=== PATIENT | female | born 1955 | race Caucasian/White ===

== ENCOUNTER → 2016-09-08 | Outpatient (CLI) | payer BC ==
[~2016-09-08] MED LIST: ASPI81TA28 PO; BUSP5TAB59 PO; CETI10TA84 PO; FAMO20TA11 PO; MULT-506 PO
== END | disposition home or self-care (01) ==
LOC: C.LABBC 14:45
PROVIDERS: ATTEND Internal Medicine
DX: Z00.00 Encounter for general adult medical examination without abnormal findings (principal)

== ENCOUNTER → 2016-12-24 | Outpatient (CLI) | payer BC ==
--- NOTE | 2016-12-24 12:55 | MAMMOGRAPHY REPORT ---
BILATERAL DIGITAL SCREENING MAMMOGRAM WITH CAD: 12/24/2016 CLINICAL HISTORY: Routine screening. Patient has no complaints. TECHNIQUE: Current study was also evaluated with a Computer Aided Detection (CAD) system. Bilateral CC and MLO views were obtained. COMPARISON: Comparison is made to exams dated: 12/24/2015 mammogram, 12/19/2014 mammogram, 11/08/2013 m ammogram, 11/20/2013 stereotactic biopsy, and 11/10/2013 mammogram - [facility]. BREAST COMPOSITION: The tissue of both breasts is heterogeneously dense, which may obscure small mas ses. FINDINGS: No suspicious masses, calcifications, or areas of architectural distortion are noted in ei ther breast. There has been no significant interval change compared to prior exams. A biopsy marker clip is again noted in the left upper outer quadrant. There are stable postsurgical changes in the r ight posterior breast from prior excisional biopsy. Benign-appearing mass in the left anterior breas t is stable. Scattered bilateral benign-appearing calcifications are stable. IMPRESSION: ACR BI-RADS CATEGORY 2: BENIGN There is no mammographic evidence of malignancy. A 1 year screening mammogram is recommended. The pa tient will receive written notification of the results. Approximately 10% of breast cancers are not detected with mammography. A negative mammographic report should not delay biopsy if a clinically suggestive mass is present. Mirian Veliz M.D. ah/:12/24/2016 11:02:01 Rn Quality: Ivy CALLE(Miranda)(M), [facility] letter sent: Normal 1/2 BI-RADS Code: ACR BI-RADS Category 2: Benign
== END | disposition home or self-care (01) ==
LOC: C.MAMM 10:34
PROVIDERS: ATTEND Internal Medicine
DX: Z12.31 Encounter for screening mammogram for malignant neoplasm of breast (principal)

== ENCOUNTER → 2017-04-28 | Day surgery (SDC) | payer BC ==
[2017-04-12 08:15] VITALS: BMI 21.0
[~2017-04-28] VITALS: Ht 177.8 cm; Wt 65.9 kg
[~2017-04-28] MED LIST changes: +LIDOCAINE HCL 2% 2 ML VIAL (20MG/ML) ONE; +PROPOFOL IV EMULSION 10 MG/ML 20 ML VIAL IV ONE; +SODIUM CHLORIDE 0.9% 500ML 500 ML IV ONE
[2017-04-28 08:07] VITALS: Ht 177.8 cm; Wt 65.9 kg
--- NOTE | 2017-04-28 08:14 | Endo History and Physical ---
History & Physical Date of Service: Apr 28, 2017. Chief Complaint: Family history of colon cancer Referring Physician: Kip Saucedo History of Present Illness 61 yo CF who presents for colonoscopy secondary to family history of colon cancer. Past Surgical History Hx Cardiac Surgery: No Hx Internal Defibrillator: No Hx Pacemaker: No Hx Abdominal Surgery: Yes (PARTIAL HYSTER, X2) Hx of Implantable Prosthesis: No Hx Post-Op Nausea and Vomiting: No Hx Cancer Surgery: No Hx Thoracic Surgery: No Hx Orthopedic: Yes (RT GREAT TOE JOINT REPLACEMENT) Hx Urinary Tract Surgery: No Family History Colon CA, Esophogeal CA Social History Smoking Status: Never Smoker Hx Substance Use: No Hx Alcohol Use: Yes (OCCASIONAL) Allergies Coded Allergies: Amoxicillin (Verified Adverse Reaction, Unknown, "VERY SEVERE HEADACHES", 04/28/17) Current Medications Reported Home Medications Medications Dose Route/Sig Max Daily Dose Days Date Category Buspirone Hcl 5 Mg Tab 0.5 Tab PO DAILY PRN 04/12/17 Reported Aspirin Ec (Aspirin) 81 Mg Tab 81 Mg PO 3XWK 04/12/17 Reported Pepcid (Famotidine) 20 Mg Tab 20 Mg PO DAILY PRN 04/12/17 Reported Zyrtec (Cetirizine HCl) 10 Mg Tab 10 Mg PO QAM 04/12/17 Reported Multivitamin (Multivitamins) Tab 1 Tab PO DAILY 04/12/17 Reported Vital Signs Weight (Kilograms): 65.91 Height (Feet): 5 Height (Inches): 10 Physical Exam General Appearance: WD/WN, no apparent distress Respiratory/Chest: Auscultation: breath sounds normal Cardiovascular: Heart Auscultation: RRR Abdomen: Bowel Sounds: normal Inspection & Palpation: soft, non-distended, no tenderness, guarding & rebound Assessment and Plan Assessment: 61 yo CF who presents for colonoscopy secondary to family history of colon cancer. Plan: Proceed with colonoscopy.
--- NOTE | 2017-04-28 08:59 | GI REPORT ---
Procedure Date: 04/28/2017 8:14 AM Procedure: Colonoscopy Indications: Family history of colon cancer in a first-degree relative Medicines: Monitored Anesthesia Care Complications: No immediate complications. Estimated Blood Loss: Estimated blood loss: none. Procedure: Pre-Anesthesia Assessment: - Prior to the procedure, a History and Physical was performed, and patient medications and allergies were reviewed. The patient's tolerance of previous anesthesia was also reviewed. The risks and benefits of the procedure and the sedation options and risks were discussed with the patient. All questions were answered, and informed consent was obtained. Prior Anticoagulants: The patient has taken aspirin, last dose was 7 days prior to procedure. ASA Grade Assessment: I - A normal, healthy patient. After reviewing the risks and benefits, the patient was deemed in satisfactory condition to undergo the procedure. After I obtained informed consent, the scope was passed under direct vision. Throughout the procedure, the patient's blood pressure, pulse, and oxygen saturations were monitored continuously. The scope was introduced through the anus and advanced to the terminal ileum. The colonoscopy was performed without difficulty. The patient tolerated the procedure well. The quality of the bowel preparation was good. The terminal ileum, ileocecal valve, appendiceal orifice, and rectum were photographed. Findings: External and internal hemorrhoids were found during retroflexion and during perianal exam. The hemorrhoids were medium-sized. The exam was otherwise without abnormality. Impression: - External and internal hemorrhoids. - The examination was otherwise normal. - No specimens collected. Recommendation: - Resume previous diet. - Continue present medications. - Repeat colonoscopy in 5 years for surveillance. - Return to primary care physician as previously scheduled. Reilly Almaguer DO 04/28/2017 8:59:01 AM This report has been signed electronically. Note Initiated On: 04/28/2017 8:14 AM I attest to the content of the Intraoperative Record and orders documented therein, exceptions below
--- NOTE | 2017-04-28 09:01 | Discharge Instructions ---
Endoscopy Patient Instructions Date / Procedure(s) Performed Apr 28, 2017. Colonoscopy Allergy Information Coded Allergies: Amoxicillin (Verified Adverse Reaction, Unknown, "VERY SEVERE HEADACHES", 04/28/17) Discharge Date / Findings Apr 28, 2017. Internal and external hemorrhoids Medication Instructions OK to resume all medications today as prescribed Reported Home Medications Medications Dose Route/Sig Max Daily Dose Days Date Category Buspirone Hcl 5 Mg Tab 0.5 Tab PO DAILY PRN 04/12/17 Reported Aspirin Ec (Aspirin) 81 Mg Tab 81 Mg PO 3XWK 04/12/17 Reported Pepcid (Famotidine) 20 Mg Tab 20 Mg PO DAILY PRN 04/12/17 Reported Zyrtec (Cetirizine HCl) 10 Mg Tab 10 Mg PO QAM 04/12/17 Reported Multivitamin (Multivitamins) Tab 1 Tab PO DAILY 04/12/17 Reported Provider Instructions Activity Restrictions - No exercising or heavy lifting for 24 hours. - Do not drink alcohol the day of the procedure. - Do not drive a car or operate machinery until the day after the procedure. - Do not make any important decisions or sign important papers in 24 hours after the procedure. Following Day: - Return to full activity which may include returning to work/school. Diet Start your diet with liquids and light foods (jello, soup, juice, toast). Then eat your usual diet if not nauseated. Treatment For Common After Affects For mild abdominal pain, bloating, or excessive gas: - Rest - Eat lightly - Lie on right side Follow-Up Information Follow-up with Dr. Kip Saucedo as scheduled Anesthesia Information What You Should Know You have had a procedure that required some medicine to reduce anxiety and discomfort. This treatment is called moderate sedation. After receiving the treatment, you may be sleepy, but you will be able to breathe on your own. The effects of the treatment may last for several hours. Follow these instructions along with Activity/Diet recommendations noted above: * Do NOT do anything where dizziness or clumsiness would be dangerous. * Rest quietly at home today, then you can be up and about tomorrow. * Have a responsible person stay with you the rest of today. * You may have had an I.V. today. If so, you may take the dressing off later today. Recommendations Call your doctor if: * Trouble breathing * Continuous vomiting for more than 24 hours * Temperature above 101 degrees * Severe abdominal pain or bloating * Pain not relieved by pain medicine ordered * There is increased drainage or redness from any incision * A large amount of rectal bleeding greater than 2-3 tablespoons. (If you had a polyp/s removed or have hemorrhoids, a small amount of blood - from the rectum is to be expected.) * You have any unanswered questions or concerns. IN THE EVENT OF A SERIOUS EMERGENCY, GO TO THE NEAREST EMERGENCY ROOM Your discharge instructions were prepared by provider Reilly Almaguer. Patient Instructions Signature Page Malena Morales Patient (or Guardian) Signature/Date: I have read and understand the instructions given to me by my caregivers. Caregiver/RN/Doctor Signature/Date: The above-named patient and/or guardian has received patient instructions on this date. + Original Patient Signature Page (only) stays with chart. Please make copy for patient.
[2017-04-28 09:27] VITALS: BP 135/74; PULSE 54; O2SAT 98
--- NOTE | 2017-04-28 09:31 | Anesthesiology Progress Note ---
Anesthesia Post Op Note Date & Time Apr 28, 2017 at 09:31 Vital Signs Pain Intensity: 0 Vital Signs Past 12 Hours Date Time Temp Pulse Resp B/P (MAP) Pulse Ox O2 Delivery O2 Flow Rate FiO2 04/28/17 09:27 54 18 135/74 (94) 98 Room Air 04/28/17 09:12 57 18 128/70 (89) 98 Room Air 04/28/17 08:57 60 18 117/65 (82) 97 Room Air 04/28/17 08:15 36.7 72 72 116/76 (89) 98 Room Air Notes Mental Status: alert / awake / arousable, participated in evaluation Pt Amnestic to Procedure: Yes Nausea / Vomiting: adequately controlled Pain: adequately controlled Airway Patency, RR, SpO2: stable & adequate BP & HR: stable & adequate Hydration State: stable & adequate Anesthetic Complications: no major complications apparent
== END | disposition home or self-care (01) ==
LOC: C.GI 07:41
PROVIDERS: ATTEND Internal Medicine
DX: Z12.11 Encounter for screening for malignant neoplasm of colon (principal); K64.8 Other hemorrhoids; K64.4 Residual hemorrhoidal skin tags; Z80.0 Family history of malignant neoplasm of digestive organs; Z90.711 Acquired absence of uterus with remaining cervical stump; Z96.698 Presence of other orthopedic joint implants; Z88.1 Allergy status to other antibiotic agents; Z68.21 Body mass index [BMI] 21.0-21.9, adult

== ENCOUNTER → 2017-06-21 | Outpatient (CLI) | payer BC ==
[~2017-06-21] MED LIST changes: -LIDOCAINE HCL 2% 2 ML VIAL (20MG/ML) ONE; -PROPOFOL IV EMULSION 10 MG/ML 20 ML VIAL IV ONE; -SODIUM CHLORIDE 0.9% 500ML 500 ML IV ONE
--- NOTE | 2017-06-24 08:31 | POLYSOMNOGRAPH REPORT ---
CLINICAL DATA: A 61-year-old female with BMI of 21.[address] Kip Saucedo with a history of snoring, apneic episodes and gasping at night. Her [place] sleepiness score is 10/24. On the evening of 06/21/2017, a home sleep apnea test was performed using a [employer] type 3 monitor. RECORDING RESULTS: Total recording time was 10 hours. The patient's monitoring time and estimated sleep time was 7.7 hours. RESPIRATORY DATA: Mild sleep apnea was documented. The RANDALL was 8.4. There were 18 obstructive, 3 mixed, and 10 central apneic episodes. There were 34 hypopneic episodes. The longest respiratory event was 56 seconds. OXIMETRY DATA: Very transient nocturnal hypoxemia was seen. Oxygen mike was 86%. Mean saturation was 93%. Time below 89% was 2 minutes. HEART RATE DATA: Heart rates ranged from 49-62 beats per minute. SNORING DATA: Snoring was recorded throughout the night. IMPRESSION: Mild sleep apnea/hypopnea with an RANDALL of 8.4. RECOMMENDATIONS: The patient may benefit from use of an oral appliance or treatment with CPAP. Clinical correlation is needed. [facility]
== END | disposition home or self-care (01) ==
LOC: C.NEUR 10:54
PROVIDERS: ATTEND Internal Medicine
DX: G47.00 Insomnia, unspecified (principal); R06.81 Apnea, not elsewhere classified; R06.83 Snoring; R53.83 Other fatigue

== ENCOUNTER → 2017-07-09 | Outpatient (CLI) | payer BC | END | disposition home or self-care (01) | LOC: C.LABSPEC 17:12 | PROVIDERS: ATTEND Physician Assistant | DX: R39.9 Unspecified symptoms and signs involving the genitourinary system (principal) ==

== ENCOUNTER → 2017-10-08 | Outpatient (CLI) | payer BC ==
[2017-10-08 11:31] LABS: ALT/SGPT 27 U/L (12-78); AST/SGOT 15 U/L (15-37); BLOOD UREA NITROGEN 17 mg/dl (7-18); CALCIUM 9.1 mg/dl (8.5-10.1); CARBON DIOXIDE 27 mmol/L (21-32); CREATININE 0.77 mg/dl (0.60-1.20); GLUCOSE 89 mg/dl (70-99); POTASSIUM 4.1 mmol/L (3.5-5.1); SODIUM 141 mmol/L (136-145)
[2017-10-08 11:42] LABS: ALKALINE PHOSPHATASE 86 U/L (45-117); CHOLESTEROL 183 mg/dl (0-200); LDL CHOLESTEROL CALCULATED 91 mg/dl; TOTAL PROTEIN 7.6 gm/dl (6.4-8.2)
== END | disposition home or self-care (01) ==
LOC: C.LABBC 07:22
PROVIDERS: ATTEND Internal Medicine
DX: Z00.00 Encounter for general adult medical examination without abnormal findings (principal); G47.00 Insomnia, unspecified; B35.1 Tinea unguium; G47.30 Sleep apnea, unspecified